=== PATIENT | male | born 1995 | race Caucasian/White ===

== ENCOUNTER 2021-06-06 11:04 | Outpatient (CLI) | payer OTHER, SELFPAY ==
--- NOTE | ~2021-06-06 | XR_ITS ---
XR hip RT min 3V w AP pelvis DATE: 06/06/2021 11:27 INDICATION: Right hip pain TECHNIQUE: AP pelvis. AP, crosstable lateral and lateral views of right hip COMPARISON: None FINDINGS: No pelvic fracture or bone destruction. The pubic symphysis and sacroiliac joints are intac t. No fracture or dislocation, avascular necrosis or bone destruction of the right hip. IMPRESSION: Negative Reviewed, dictated and finalized at location B. IMPRESSION: Negative
== END 2021-06-06 11:05 | disposition home or self-care (01) ==
LOC: ANHIMG 11:06
PROVIDERS: PCP Family Medicine; Visit Provider Physician Assistant
DX: M25.551 Pain in right hip (principal)
CPT/HCPCS: 73502

== ENCOUNTER 2023-04-08 02:20 | Emergency (ER) | payer OTHER, SELFPAY ==
[2023-04-08] VITALS (10 sets, daily range): BP systolic 104–137; BP diastolic 58–82; PULSE 52–64; RESP 14–20; TEMP 36.3–36.4; O2SAT 97–100
--- NOTE | ~2023-04-08 | XR_ITS ---
EXAMINATION: XR chest 2V 04/08/2023 03:59 INDICATION: Chest pain PROCEDURE: PA and lateral views of the chest COMPARISON: No prior studies for comparison. FINDINGS: The lungs are clear. The cardiomediastinal silhouette is within normal limits. There are no pleural effusions. There is no pneumothorax suspected. IMPRESSION: 1: NO ACUTE CARDIOPULMONARY DISEASE. Reviewed, dictated and finalized at location A.
--- NOTE | ~2023-04-08 | CT_ITS ---
EXAMINATION: CT abdomen pelvis w con DATE: 04/08/2023 03:43 INDICATION: Evaluate for cholecystitis TECHNIQUE: Computed tomography (CT) of the abdomen and pelvis was performed with 100 cc Omnipaque 350 intravenous contrast. The dose-length product was 488.29 mGy-cm. Automated exposure control and iter ative reconstruction technique were employed. COMPARISON: None. FINDINGS: Lung bases unremarkable. No significant pleural or pericardial effusion. Heart size is norm al. There are gallstones. There is mild gallbladder wall thickening with pericholecystic edema, suspiciou s for cholecystitis. The liver, spleen, pancreas, adrenal glands and kidneys are unremarkable. Retroa ortic left renal vein. Nonobstructive bowel pattern. Colonic diverticulosis without evidence for dive rticulitis. Normal appendix. No free air or free fluid. Mild lumbar spondylosis. No significant vascu lar abnormality. No lymphadenopathy. IMPRESSION: 1. Cholelithiasis with gallbladder wall thickening and subtle pericholecystic edema, suspicious for c holecystitis. Reviewed, dictated and finalized at location A. IMPRESSION: 1. Cholelithiasis with gallbladder wall thickening and subtle pericholecystic e july, suspicious for cholecystitis.
--- NOTE | 2023-04-08 02:29 | ECG_ITS ---
Measurements Intervals [place] Rate: 47 P: 61 ID: [id number] QRS: -45 QRSD: 157 T: 22 QT: 433 QTc: 386 Interpretive Statements SINUS BRADYCARDIA WITH SINUS ARRHYTHMIA LEFT AXIS DEVIATION RIGHT BUNDLE BRANCH BLOCK ABNORMAL ECG NO PREVIOUS ECG AVAILABLE FOR COMPARISON Electronically Signed On 04-08-2023 8:03:39 CDT by Alec Pelaez D.O.
[2023-04-08] MEDS: ASPIRIN 81 MG CHEWABLE TABLET 324 MG PO (02:33)
[2023-04-08 02:42] LABS: Basophils Percent Auto 0.5 % (0.2-1.2); Eosinophils Absolute Auto 0.1 K/mm3 (0-0.3); Eosinophils Percent Auto 1.4 % (0-4.4); Hematocrit 43.1 % (42.0-52.0); Hemoglobin 15.2 g/dL (14.0-18.0); Immature Granulocyte Absolute 0.02 K/mm3 (0.00-0.031); Immature Granulocyte Percent A 0.3 % (0-0.5); Lymphocytes Percent Auto 38.9 % (18.3-44.2); Mean Corpuscular HGB Conc 35.3 g/dl (32-36); Mean Corpuscular Hemoglobin 31.5 pg (26-34); Mean Corpuscular Volume 89.4 fl (80-100); Monocytes Absolute Auto 0.8 K/mm3 (0.1-0.6); Monocytes Percent Auto 13.2 % (2.6-8.5); Neutrophils Absolute Auto 2.7 K/mm3 (1.3-6.7); Neutrophils Percent Auto 45.7 % (45.5-73.1); Platelet Count Result 170 k/mm3 (150-375); Red Blood Count 4.82 M/mm3 (4.6-6.20); Red Cell Distribution Width 12.9 % (11.5-14.5); White Blood Count 5.9 K/mm3 (4.5-10.0)
[2023-04-08 02:51] LABS: Alanine Aminotransferase 35 U/L (6-50); Albumin Level 4.5 g/dL (3.5-5.1); Alkaline Phosphatase 43 U/L (38-126); Anion Gap 11 mmol/L (8-16); Aspartate Amino Transferase 27 U/L (17-59); Bilirubin,Total 0.5 mg/dL (0.2-1.3); Blood Urea Nitrogen 16 mg/dL (9-20); Calcium 9.2 mg/dL (8.4-10.2); Carbon Dioxide 23 mmol/L (22-30); Chloride 106 mmol/L (98-107); Estimated CRCL calculation 110 ml/min; Estimated Glomerular Filt Rate > 60; Glucose 113 mg/dL (65-110); Lipase 112 U/L (23-300); Potassium 3.5 mmol/L (3.4-5.0); Sodium 140 mmol/L (137-145)
[2023-04-08] MEDS: SODIUM CHLORIDE 0.9% IV 2,000 ML 999 ML IV CONT (02:55)
[2023-04-08] MEDS: ONDANSETRON INJ 4 MG/2 ML VIAL IV PUSH (02:56)
[2023-04-08] MEDS: HYDROmorphone HCL INJ (*CRX) 1 MG/ML SYR 0.5 MG IV PUSH (02:59)
[2023-04-08] MEDS: KETOROLAC 15 MG/ML VIAL (*BKC) IV PUSH (03:18)
--- NOTE | 2023-04-08 04:41 | ED.GENADULT ---
HPI - General Adult General Chief complaint: Chest Pain <Babar Caballero MD - Last Filed: 04/08/23 06:40> Stated complaint: epigastic/chest pain <Babar Caballero MD - Last Filed: 04/08/23 06:40> Time Seen by Provider: 04/08/23 02:33 <Babar Caballero MD - Last Filed: 04/08/23 06:40> History of Present Illness HPI narrative: This is a 28-year-old male presenting ED with chief complaint of right upper quadrant pain. The patient said the pain started at 1:00 a.m. Sharp pressure-like pain in his right upper quadrant and radiates to his back chest. Is 8/10 intensity and constant. He has never experienced pain like this before there are no alleviating or exacerbating symptoms. He did have 1 episode of nausea and vomit vomiting. He denies fevers chills, shortness of breath or urinary symptoms. <Babar Caballero MD - Last Filed: 04/08/23 06:40> Related Data Home medications: Home Medications Medication Instructions Recorded Confirmed cetirizine 10 mg capsule (Zyrtec) 10 mg PO DAILY 10/20/19 06/06/21 <Babar Caballero MD - Last Filed: 04/08/23 06:40> Allergies/adverse reactions: Allergies Allergy/AdvReac Type Severity Reaction Status Date / Time iodine Allergy Unknown mild Verified 06/06/21 10:22 itching in mouth APPLES, Allergy Mild mild Uncoded 06/06/21 10:22 itching in mouth BANANAS Allergy Mild mild Uncoded 06/06/21 10:22 itching in mouth GRAPES Allergy Mild mild Uncoded 06/06/21 10:22 itching in mouth SHELL FISH Allergy Mild mild Uncoded 06/06/21 10:22 itching in mouth <Babar Caballero MD - Last Filed: 04/08/23 06:40> PMFSH Past Medical History Medical History: Medical History ADD (attention deficit disorder) Allergic rhinitis Arthritis Chest pain Full thickness tear of left subscapularis tendon Instability of left shoulder joint <Babar Caballero MD - Last Filed: 04/08/23 06:40> Surgical History Surgical History: Surgical History History of hernia repair Status post labral repair of shoulder (~2013) <Babar Caballero MD - Last Filed: 04/08/23 06:40> Family History Family History: Family History Mother Family history of diabetes mellitus in first degree relative <Babar Caballero MD - Last Filed: 04/08/23 06:40> Social History Social History: Social History Social History: Smoking status: Former smoker Tobacco type: cigarettes Second hand tobacco smoke exposure: No Smoking end date: 11/26/12 Alcohol intake: current Alcohol use details: Pt drinks once a month. Substance use: never Substance use type: does not use Living arrangements: with family Occupation/Education: occupation Gender identity (if verbalized by the patient): Male Sexual Orientation (if Verbalized by the Patient): Straight or Heterosexual <Babar Caballero MD - Last Filed: 04/08/23 06:40> Exam Narrative: APPEARANCE: No apparent distress. Head: atraumatic. EYES: EOMI, NOSE: Atraumatic NECK: Trachea midline RESPIRATORY: No increased rate of breathing CARDIOVASCULAR: RRR, ABDOMINAL: Patient has tenderness to palpation in the right upper quadrant. Positive Louis sign. Voluntary guarding. No rebound MUSCULOSKELETAl: No obvious deformities NEURO: Alert. Moving 4/4 extremities SKIN:: Warm, dry. Normal color PSYCHIATRIC: Normal affect <Babar Caballero MD - Last Filed: 04/08/23 06:40> Course Course Emergency Course: 0700: Signed out to the oncoming physician pending imaging. <Babar Caballero MD - Last Filed: 04/08/23 06:40> Reevaluation(s) Reevaluation #1: 28-year-old male presented the emergency department for evaluation of chest abdominal
== END 2023-04-08 08:24 | disposition home or self-care (01) ==
PROVIDERS: Emergency Provider Emergency Medicine; PCP Family Medicine
DX: K80.70 Calculus of gallbladder and bile duct without cholecystitis without obstruction (principal); Z87.891 Personal history of nicotine dependence; R00.1 Bradycardia, unspecified; I45.10 Unspecified right bundle-branch block
CPT/HCPCS: 36415; 71046; 74177; 80053; 83690; 85025; 93005; 96361; 96365; 96375; 99284; A9270; J0131; J1170; J1885; J2405; J7030; Q9967

== ENCOUNTER 2023-10-03 13:44 | Outpatient (CLI) | payer OTHER, SELFPAY ==
--- NOTE | ~2023-10-03 | XR_ITS ---
EXAMINATION: XR fl inj shoulder LT - MR/CT DATE: 10/03/2023 14:50 INDICATION: Left shoulder pain TECHNIQUE: A time-out was performed to verify the patient's name, date of , and procedure to b e performed. The procedure including the risks, benefits, and alternatives was discussed with the pat ient. Risks discussed included bleeding and infection. The patient understood the risks and agreed to proceed. The skin overlying the rotator cuff interval of the left glenohumeral joint was prepped an d draped in usual sterile fashion. Anesthetic was administered with 1% lidocaine subcutaneously. A 22 G needle was advanced under fluoroscopic guidance into the joint. Injection of 1 mL of Omnipaque 240 confirmed intra-articular position of the needle. Subsequently, injectate consisting of 12 mL of 2:1:1 mixture of sterile saline:Omnipaque 240:1% lidocaine mixed 200:1 with 529 mg/mL Multihance kaley olinium contrast was injected with intra-articular administration confirmed with intermittent fluoros copy. The needle was removed and the entry site was cleaned and dressed. There were no immediate com plications. Fluoroscopy exposure time was 0.3 minutes. The total number of images was 146. FINDINGS: Real-time fluoroscopy demonstrates the needle in the left glenohumeral joint. IMPRESSION: 1. Successful left glenohumeral joint injection of dilute gadolinium contrast mixture for separate MR I arthrogram which will be dictated separately. Reviewed, dictated and finalized at location A. IST WATER PURIFICATION IMPRESSION: 1. Successful left glenohumeral joint injection of dilute gadolinium contrast m ixture for separate MRI arthrogram which will be dictated separately.
--- NOTE | ~2023-10-03 | MR_ITS ---
EXAMINATION: MR shoulder LT w con DATE: 10/03/2023 15:23 INDICATION: Left shoulder pain TECHNIQUE: Magnetic resonance imaging (MRI) of the left shoulder was performed following intra-artic ular gadolinium contrast injection and without intravenous contrast. Details of the glenohumeral join t injection have been dictated separately. Sequences included axial T2-weighted FS FSE, axial T1-quinten ghted FS FSE, coronal oblique T1-weighted FS FSE, coronal oblique T2-weighted FSE, sagittal T2-weight ed FS FSE, sagittal T1-weighted FSE, and ABER (abduction external rotation) T1-weighted FS FSE. COMPARISON: 10/06/2019 FINDINGS: Coracoacromial arch: The acromion undersurface is curved in morphology (type II). The coracoacromial ligament is normal. A cromioclavicular joint is normal. Rotator cuff: The supraspinatus, infraspinatus and teres minor are normal. There are postoperative change of prior subscapularis tendon repair with foci of susceptibility artifact along the lesser tuberosity. The cau talia muscular attachment along the inferior margin of the lesser tuberosity remains intact. Attenuated and frayed appearing subscapularis tendon material with lax appearing fibers remain attached to the cephalad two thirds of the lesser tuberosity footplate. These are of doubtful functional integrity wi th cephalad deviation into the rotator cuff interval of the more medial portion of the tendon likely resulting from unopposed traction from the supraspinatus tendon and biceps dar sling. Unchanged me dial retraction of the subscapularis muscle belly with mild fatty atrophy of the lateral side of the muscle belly. Biceps tendon, glenoid labrum and glenohumeral cartilage: Long head of the biceps tendon is normal. There are multiple foci of susceptibility artifact along th e anterior to anteroinferior rim of the glenoid likely related to prior labral repair. The artifact l imits assessment for the amount and integrity of repair. The superior labrum is diminutive but withou t discrete tear. The humeral cartilage remains normal. Bones and other: Bone alignment is normal. Mild fracture or pathologic marrow replacing process. No abnormal fluid sig nal in the subacromial/subdeltoid bursa to suggest bursitis. IMPRESSION: 1. Changes of prior subscapularis tendon repair with chronic recurrent subscapularis tendon tear with large defect between the intact muscular attachment and caudal third of the tendon and the markedly attenuated and frayed appearing more cephalad portion of the tendon which is retracted cephalad towar ds the rotator cuff interval suggesting minimal residual functional integrity of the fibers remaining attached the lesser tuberosity. Aside from some medial retraction of the muscle belly there is only mild fatty atrophy suggesting the cephalad portion of the tendon remains functionally attached likely to the more posterior supraspinatus tendon and biceps dar sling. Overall this does not appear sig nificantly changed when compared with the study from 10/06/2019 2. Postoperative change of likely prior repair of the anterior to anteroinferior glenoid labrum which remains obscured by the susceptibility artifact from the repair. Reviewed, dictated and finalized at location A. SCIENTISTS IMPRESSION: 1. Changes of prior subscapularis tendon repair with chronic recurrent subscapu magalis tendon tear with large defect between the intact muscular attachment and caudal third of the tendon and the markedly attenuated and frayed appearing mor e cephalad portion of the tendon which is retracted cephalad towards the rotato r cuff interval suggesting minimal residual functional integrity of the fibers remaining attached the lesser tuberosity. Aside from some medial retraction of the muscle belly there is only mild fatty atrophy s
== END 2023-10-03 13:45 | disposition home or self-care (01) ==
LOC: ANHIMG 13:51
PROVIDERS: PCP Family Medicine; Visit Provider Physician Assistant Surgical
DX: M25.512 Pain in left shoulder (principal)
CPT/HCPCS: 23350; 73222; A9577

== ENCOUNTER 2025-10-27 13:45 | Outpatient (CLI) | payer OTHER, SELFPAY ==
--- NOTE | ~2025-10-27 | US_ITS ---
US scrotum doppler INDICATION: Scrotal pain TECHNIQUE: Testicular sonogram utilizing grayscale and color Doppler FINDINGS: The testes are normal in size and appearance. No focal lesions are seen. The right testes measures 4.6 x 3 x 2.6 cm centimeters, and the left testis measures 4.7 x 2.7 x 2.9 cm cm. There is normal vascular flow to both testes. There is a possible right inguinal hernia. The right and left epididymides appear normal. There is no varicocele or hydrocele. IMPRESSION: 1. Unremarkable testicular ultrasound. 2: Possible right inguinal hernia. Consider correlation with CT pelvis. Reviewed, dictated and finalized at location I. URE WRITER
== END 2025-10-27 13:46 | disposition home or self-care (01) ==
LOC: GOSHIMG 13:45
PROVIDERS: PCP Physician Assistant; Visit Provider Physician Assistant
DX: N50.82 Scrotal pain (principal); Z98.890 Other specified postprocedural states; Z87.19 Personal history of other diseases of the digestive system
CPT/HCPCS: 76870; 93976